=== PATIENT | female | born 1930 | race Caucasian/White ===

== ENCOUNTER 2018-04-03 20:09 | Emergency (ER) | payer MEDICARE ==
[~2018-04-03] VITALS: Ht 154.9 cm; Wt 59.0 kg
[~2018-04-03 20:09] MED LIST: ALBU90OI INH; Aspir-Trin325 MG PO; CEPH500 PO; CHOL10002 PO; CLON.5 PO; CYAN500 PO; Cipro250 MG PO; DIPH50 PO; FOLI1 PO; FURO40 PO; HYDPAM25; LISI10; LISI5 PO; METO100ER; METO25ER; METO25ER PO; PANT40 PO; POTA10T PO; POTA8; POTA8 PO; Prednisone20 MG PO; RISP.5; RISP1; RISP1 PO; SODCHL1; SODCHL1 PO; ZEMPLAR; Zithromax250 MG PO
[2018-04-03 21:31] LABS: BASOPHILS ABSOLUTE AUTO 0.02 K/mm3 (0.00-0.23); BASOPHILS PERCENT AUTO 0 % (0-2); EOSINOPHILS ABSOLUTE AUTO 0.13 K/mm3 (0.00-0.68); EOSINOPHILS PERCENT AUTO 2 % (0-6); Hematocrit 34.3 % (33.0-51.0); Hemoglobin 11.5 g/dL (11.5-16.0); IMMATURE GRAN ABSOLUTE AUTO 0.02 K/mm3 (0.00-0.10); IMMATURE GRAN PERCENT AUTO 0 % (0-1); LYMPHOCYTES ABSOLUTE AUTO 0.97 K/mm3 (0.84-5.20); LYMPHOCYTES PERCENT AUTO 18 % (21-46); MONOCYTES ABSOLUTE AUTO 0.52 K/mm3 (0.16-1.47); MONOCYTES PERCENT AUTO 10 % (4-13); Mean Corpuscular HGB 31.9 pg (26.0-34.0); Mean Corpuscular HGB Conc 33.5 g/dL (31.5-36.5); Mean Corpuscular Volume 95 fL (80-100); Mean Platelet Volume 11.4 fL (9.1-12.4); NEUTROPHILS ABSOLUTE AUTO 3.73 K/mm3 (1.96-9.15); NEUTROPHILS PERCENT AUTO 69 % (41-73); Platelet Count 154 K/mm3 (150-400); RDW Coefficient Variation 14.4 % (11.7-14.2); White Blood Cell Count 5.39 K/mm3 (4.00-11.30)
[2018-04-03] MEDS ORDERED: ALPR.5 PO (21:33)
[2018-04-03] MEDS ORDERED: AMLO5 PO (21:33)
[2018-04-03] MEDS ORDERED: ATEN25 PO (21:33)
[2018-04-03] MEDS ORDERED: CITA20 PO (21:33)
[2018-04-03] MEDS ORDERED: IRON150C PO (21:35)
[2018-04-03] MEDS ORDERED: FOLI400 PO (21:35)
[2018-04-03] MEDS ORDERED: ASCO500 PO (21:35)
[2018-04-03] MEDS ORDERED: Megace Es625 MG/5 M PO (21:39)
[2018-04-03 21:45] LABS: International Normalized Ratio 1.04; Prothrombin Time Results 10.7 Sec (9.7-11.5)
[2018-04-03 21:50] LABS: Albumin, Blood 3.1 g/dL (3.4-5.0); Bilirubin, Total 0.5 mg/dL (0.1-1.0); Bun/Creatinine Ratio 14.9 (12.0-20.0); Calcium, Blood 8.8 mg/dL (8.5-10.1); Creatinine, Blood 0.94 mg/dL (0.40-1.00); Globulin, Blood 3.2 g/dL (2.2-4.0); Potassium, Blood 3.8 mmol/L (3.5-5.5); Total Protein, Blood 6.3 g/dL (6.4-8.2)
[2018-04-03 22:40] LABS: Source, Urine Catheter
[2018-04-03 22:49] LABS: Bilirubin, Urine Neg (Neg); Blood, Urine 1+ (Neg); Glucose Qualitative, Urine Neg (Neg); Ketones, Urine 1+ (Neg); Leukocyte Esterase, Urine 3+ (Neg); Nitrite, Urine Neg (Neg); Protein, Urine Neg (Neg); Urobilinogen, Urine NORM (Normal)
[2018-04-03 22:58] LABS: Appearance, Urine Clear (Clear); Color, Urine Yellow (P-Yellow)
[2018-04-03 22:59] LABS: Bacteria Mod /hpf; Hyaline Casts 0-2 /lpf (0-2); Red Blood Cells, Urine 0-2 /hpf (0-2); Squamous Epithelial Cells Not Seen /hpf (Few); White Blood Cells, Urine 25-50 /hpf (0-5)
[2018-04-03] MEDS ORDERED: CEPH500 PO (23:18)
[2018-04-03] MEDS ORDERED: Norco 5-325 Ta1 EACH PO (23:18)
[2018-04-03] MEDS ORDERED: VALACYCLOVIR1000 MG PO (23:18)
== END 2018-04-03 23:57 | disposition home or self-care (01) ==
LOC: ER 20:09
PROVIDERS: Physician Assistant
DX: N39.0 Urinary tract infection, site not specified (principal); B02.9 Zoster without complications; J44.9 Chronic obstructive pulmonary disease, unspecified; Z88.2 Allergy status to sulfonamides; Z88.8 Allergy status to other drugs, medicaments and biological substances; Z88.0 Allergy status to penicillin; Z79.899 Other long term (current) drug therapy
CPT/HCPCS: 36415; 51701; 80053; 81001; 83605; 85025; 85610; 85730; 87077; 87086; 87186; 93005; 93010; 96361; 96374; 99284-25; J0696; J7030